=== PATIENT | female | born 1965 ===

== ENCOUNTER 2022-10-08 23:02 | Emergency (ER) | payer OTHER ==
[2022-10-08] MEDS ORDERED: Acetaminophen-Codeine 300-30mg TAB PO STA (23:34)
[2022-10-08] MEDS ORDERED: IBUPROFEN 800 MG TAB PO STA (23:34)
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
--- NOTE | 2022-10-08 23:54 | XR ---
EXAM: XR Chest, 2 Views CLINICAL HISTORY: ITS.REASON XR Reason: pain TECHNIQUE: Frontal and lateral views of the chest. COMPARISON: No relevant prior studies available. FINDINGS: Lungs: Unremarkable. No consolidation. Pleural space: Unremarkable. No pleural effusion or pneumothorax. Heart: Unremarkable. No cardiomegaly or pulmonary vascular congestion. Bones/joints: No acute fracture. No dislocation. IMPRESSION: No evidence of acute cardiopulmonary disease.
[2022-10-09 00:51] VITALS: BP 130/77; PULSE 70; RESP 18; TEMP 98.4
== END 2022-10-09 00:51 | disposition home or self-care (01) ==
LOC: EC 23:02
DX: S20.229A Contusion of unspecified back wall of thorax, initial encounter (principal); Z88.2 Allergy status to sulfonamides; V43.62XA Car passenger injured in collision with other type car in traffic accident, initial encounter; Y92.410 Unspecified street and highway as the place of occurrence of the external cause
CPT/HCPCS: 71046; 99285